=== PATIENT | female | born 1965 | race Caucasian/White ===

== ENCOUNTER → 2016-08-26 | Outpatient (CLI) | payer OTHER ==
--- NOTE | 2016-08-26 20:25 | PN ---
DATE OF SERVICE: 08/26/2016 A 50-year-old lady who has been followed in the sleep center for treatment of obstructive sleep apnea/hypopnea syndrome in severe range. She has history of obstructive sleep apnea with apnea-hypopnea index 51.2. She continued to use her CPAP equipment every night for the whole night. She brought her CPAP unit with her to check up. I checked her CPAP machine. CPAP pressure is 10 cm of water. Patient is using it every night. No snoring with the machine. No sleepiness during the day. [place] Sleepiness Scale is 3. Unfortunately, machine does not have information about the patient's breathing during sleep; but again, clinically it sounds that everything works and she is sleeping well. MEDICATIONS: 1. Levothyroxine. 2. Spironolactone. 3. Vitamin D. PHYSICAL EXAMINATION: GENERAL: The patient in no distress. VITAL SIGNS: BP 120/75, HR 76, RR 16. Height 5 feet 3 inches. Weight 187. BMI 33.1. Temp 98.5, oxygen saturation at room air 98%. HEENT: PERRLA, EOMI. Evaluation of oropharynx showed tongue protrudes midline, extremely low position of soft palate. Neck: Supple. No JVD. Thyroid is not palpable. LUNGS: Clear to percussion and to auscultation. Good air exchange. No wheezing or rhonchi. HEART: S1, S2 regular. No murmurs, gallops, or rubs. ABDOMEN: Slightly obese, soft and nontender. Bowel sounds are present. No organomegaly appreciated. EXTREMITIES: No clubbing or cyanosis. SUMMER CAMP COUNSELOR: Awake, alert, and oriented x3. Cranial nerves 2 to 7 intact. There is no fasciculation or atrophy noted. No focal deficits observed. IMPRESSION: 1. Obstructive sleep apnea/hypopnea syndrome, clinically on control with continuous positive airway pressure at 10 cm of water. Patient benefiting from treatment. 2. Hypothyroidism. 3. Obesity. 4. History of polycystic ovary syndrome. 5. Status post uvulopalatopharyngoplasty. 6. Nasal septum deviation. PLAN: 1. Continue treatment with CPAP every night for the whole night. 2. Watching and losing weight. 3. Sleep hygiene with regular time in bed for at least 8 hours. 4. Patient is eligible to receive new CPAP unit if she has any problems with the existing unit. Thank you very much for allowing me to participate in the management of your patient. Sincerely, Dio Rueda MD, PhD, FAASM. Diplomat of [place] [employer], Sleep Medicine Board by [place] [place] [employer] Sales And Events Coordinator of [facility] [place]
== END | disposition home or self-care (01) ==
LOC: SLEEP 16:50
PROVIDERS: ATTEND Internal Medicine
DX: G47.33 Obstructive sleep apnea (adult) (pediatric) (principal); E03.9 Hypothyroidism, unspecified; E66.9 Obesity, unspecified; Z68.33 Body mass index [BMI] 33.0-33.9, adult; J34.2 Deviated nasal septum; Z79.899 Other long term (current) drug therapy

== ENCOUNTER → 2016-10-21 | Outpatient (CLI) | payer OTHER ==
--- NOTE | 2016-10-21 12:17 | PN ---
DATE OF SERVICE: 10/21/2016 A 51-year-old lady who has been followed in the Sleep Center for treatment of obstructive sleep apnea-hypopnea syndrome. Recently, patient received her new CPAP unit and came for followup visit. She is using equipment without any problem related to the machine or mask. I checked her CPAP unit. CPAP pressure is 10 cm of water. Ramp is automatic regimen. Usage is 30 out of 30 nights for more than 4 hours. Average usage is 7.6 hours. Leak is 12 L/min which is acceptable. Apnea-hypopnea index reading is 0.3 for the last month which is perfect. Patient feels well, no symptoms of excessive daytime sleepiness. [place] Sleepiness scale is 1. MEDICATIONS: Levothyroxine, spironolactone, vitamin D. During physical exam, patient in no distress. BP 110/71, HR 74, RR 16, weight 188, temp 98.3, oxygen saturation on room air 98 %. Extremely low position of soft palate. ABDOMEN: Slightly obese. NECK: Supple. No JVD. Thyroid is not palpable. HEART: S2, S2, regular. No murmurs, gallops or rubs. EXTREMITIES: No clubbing or cyanosis. JOY LOADING MACHINE OPERATOR: Awake, alert, and oriented x3. Cranial nerves 2 to 7 intact. There is no fasciculation or atrophy noted. No focal deficits observed. IMPRESSION: 1. Obstructive sleep apnea-hypopnea syndrome on control with CPAP at 10 cm of water. Patient demonstrates 100% compliance with treatment, benefiting from treatment. 2. History of polycystic ( ) syndrome. 3. Hypothyroidism. 4. Mild obesity. 5. Status post UPPP. 6. Nasal septum deviation. PLAN: 1. Patient will continue to use her CPAP equipment every night for the whole night. 2. Losing weight. 3. Sleep hygiene with regular time in bed for at least 8 hours. 4. No driving if feeling any sleepiness. 5. Losing weight. 6. Followup visit in 1 year or earlier if patient has any problem with usage of CPAP treatment. Thank you very much for allowing me to participate in the management of your patient. Sincerely, Dio Rueda MD PhD, FAASM Diplomate of [place] [employer], Sleep Medicine Board by [place] [employer] [place] [employer] Supply Chain Analyst of [facility] [place] [facility] CENTERAlessandro
== END | disposition home or self-care (01) ==
LOC: SLEEP 10:56
PROVIDERS: ATTEND Internal Medicine
DX: G47.33 Obstructive sleep apnea (adult) (pediatric) (principal); E03.9 Hypothyroidism, unspecified; E66.9 Obesity, unspecified; J34.2 Deviated nasal septum; Z90.89 Acquired absence of other organs

== ENCOUNTER 2017-10-10 07:18 | Day surgery (SDC) | payer OTHER ==
[2017-10-06 17:03] VITALS: BMI 33.6
[~2017-10-10 07:18] MED LIST: LACTATED RINGERS 1,000 ML IV SCH
[2017-10-10 07:38] VITALS: RESP 16; TEMP 98
[2017-10-10] MEDS ORDERED: LIDOCAINE 1% 20 ML VIAL (10MG/ML) FOR IV START INTRADERMA ONE (07:41)
[2017-10-10] MEDS ORDERED: PROPOFOL 10 MG/ML 20 ML VIAL IV ONE (08:53)
[2017-10-10] MEDS ORDERED: LIDOCAINE 1% INJ 10MG/ML (20 ML MDV) ONE (08:53)
--- NOTE | 2017-10-10 09:24 | P.PCN ---
Date of Procedure: 10/10/17 Procedure(s) Performed: Procedure: Total colonoscopy. Preoperative diagnosis: Screening for neoplasia. Postoperative diagnosis: Exam within normal limits. Preparation: HalfLytely prep. Sedation: Was provided by anesthesia. Brief clinical history: The patient is a 52-year-old female who is scheduled for this evaluation for screening for neoplasia age being her risk factor. She had a prior exam many years back. The patient has no abdominal complaints, bleeding or anemia. Procedure: With the patient on her left lateral decubitus position and after informed consent and adequate sedation, the perianal area was inspected and it did not show any fissures or fistulas. There were no masses felt on digital rectal examination. The Olympus CFQ 160L video colonoscope was then inserted in the rectum in the usual fashion and advanced to the cecum. The mucosa appeared healthy. There was no polyps or tumors seen or any obvious diverticular disease or other pathology. I retroflexed the endoscope in the rectum before the endoscope was withdrawn. The patient tolerated the procedure well. Plan: The patient was reassured. She will follow-up with you as planned and I recommended repeat exam in 10 years.
[2017-10-10 10:02] VITALS: BP 116/75; PULSE 71
== END 2017-10-10 10:15 | disposition home or self-care (01) ==
LOC: ORWHC2ENDO 07:18
DX: Z12.11 Encounter for screening for malignant neoplasm of colon (principal); K21.9 Gastro-esophageal reflux disease without esophagitis; G47.33 Obstructive sleep apnea (adult) (pediatric); E07.9 Disorder of thyroid, unspecified; Z79.890 Hormone replacement therapy; Z79.899 Other long term (current) drug therapy; Z99.89 Dependence on other enabling machines and devices
CPT/HCPCS: 81025; G0121; J2001; J2704

== ENCOUNTER → 2018-04-14 | Outpatient (CLI) | payer OTHER ==
--- NOTE | 2018-04-14 10:37 | MM ---
Reason for exam: screening (asymptomatic). Last mammogram was performed 2 years and 1 month ago. History: Patient is nulliparous. Family history of breast cancer in maternal aunt. Taking hormonal contraceptives for 10 years beginning at age 20. Took estrogen for 2 months. Physical Findings: A clinical breast exam by your physician is recommended on an annual basis and results should be correlated with mammographic findings. MG Screening Mammo w CAD Bilateral CC and MLO view(s) were taken. XCCM view(s) were taken of the right breast. Prior study comparison: March 03, 2016, bilateral MG screening mammo w CAD. November 05, 2013, bilateral MG screening mammo w CAD. The breast tissue is heterogeneously dense. This may lower the sensitivity of mammography. Nodular density upper outer quadrant right breast. This finding is changed when compared with previous exams. ASSESSMENT: Incomplete: need additional imaging evaluation, BI-RAD 0 RECOMMENDATION: Special view mammogram and ultrasound of the right breast. [facility] will attempt to contact patient to return for supplemental views and ultrasound.
== END ==
LOC: RADMAMWWP 06:58
PROVIDERS: ATTEND Family Medicine
DX: Z12.31 Encounter for screening mammogram for malignant neoplasm of breast (principal)
CPT/HCPCS: 77067

== ENCOUNTER → 2018-05-02 | Outpatient (CLI) | payer OTHER ==
--- NOTE | 2018-05-02 17:20 | MM ---
Reason for exam: additional evaluation requested from abnormal screening. Last mammogram was performed 1 month ago. History: Patient is nulliparous. Family history of breast cancer in maternal aunt. Taking hormonal contraceptives for 10 years beginning at age 20. Took estrogen for 2 months. Physical Findings: Nurse did not find any significant physical abnormalities on exam. MG 3D Work Up W/Cad RT Spot compression CC, spot compression MLO, spot compression XCCL, and ML view(s) were taken of the right breast. Prior study comparison: April 14, 2018, bilateral MG screening mammo w CAD. March 03, 2016, bilateral MG screening mammo w CAD. The breast tissue is heterogeneously dense. This may lower the sensitivity of mammography. No discrete abnormality persists on additional views. These results were verbally communicated with the patient and result sheet given to the patient on 05/02/18. ASSESSMENT: Negative, BI-RAD 1 RECOMMENDATION: Return to routine screening mammogram schedule for both breasts.
== END | disposition home or self-care (01) ==
LOC: RADMAMWWP 14:11
PROVIDERS: ATTEND Family Medicine
DX: R92.8 Other abnormal and inconclusive findings on diagnostic imaging of breast (principal)
CPT/HCPCS: 77061; 77065

== ENCOUNTER → 2019-05-12 | Outpatient (CLI) | payer BC ==
--- NOTE | 2019-05-14 14:32 | MM ---
Reason for exam: screening (asymptomatic). Last mammogram was performed 1 year ago. History: Patient is nulliparous. Family history of breast cancer in maternal aunt. Took hormonal contraceptives for 10 years beginning at age 20. Took estrogen for 2 months. Physical Findings: A clinical breast exam by your physician is recommended on an annual basis and results should be correlated with mammographic findings. MG 3D Screening Mammo W/Cad Bilateral CC and MLO view(s) were taken. Prior study comparison: May 02, 2018, right breast MG 3d work up w/cad RT. April 14, 2018, bilateral MG screening mammo w CAD. The breast tissue is heterogeneously dense. This may lower the sensitivity of mammography. There is no discrete abnormality. No significant changes when compared with prior studies. ASSESSMENT: Negative, BI-RAD 1 RECOMMENDATION: Routine screening mammogram of both breasts in 1 year.
== END | disposition home or self-care (01) ==
LOC: RADMAMWWP 11:08
PROVIDERS: ATTEND Family Medicine
DX: Z12.31 Encounter for screening mammogram for malignant neoplasm of breast (principal)
CPT/HCPCS: 77063; 77067

== ENCOUNTER → 2020-07-11 | Outpatient (CLI) | payer BC ==
--- NOTE | 2020-07-14 10:41 | MM ---
Reason for exam: screening (asymptomatic). Last mammogram was performed 1 year and 2 months ago. History: Patient is nulliparous. Family history of breast cancer in maternal aunt. Took hormonal contraceptives for 10 years beginning at age 20. Took estrogen for 2 months. Physical Findings: A clinical breast exam by your physician is recommended on an annual basis and results should be correlated with mammographic findings. MG 3D Screening Mammo W/Cad Bilateral CC and MLO view(s) were taken. Prior study comparison: May 12, 2019, bilateral MG 3d screening mammo w/cad. May 02, 2018, right breast MG 3d work up w/cad RT. The breast tissue is heterogeneously dense. This may lower the sensitivity of mammography. There is no discrete abnormality. No significant changes when compared with prior studies. ASSESSMENT: Negative, BI-RAD 1 RECOMMENDATION: Routine screening mammogram of both breasts in 1 year.
== END | disposition home or self-care (01) ==
LOC: RADMAMWWP 09:23
PROVIDERS: ATTEND Family Medicine
DX: Z12.31 Encounter for screening mammogram for malignant neoplasm of breast (principal)
CPT/HCPCS: 77063; 77067

== ENCOUNTER → 2021-09-22 | Outpatient (CLI) | payer BC ==
[2021-09-22 15:41] VITALS: BP 130/82; PULSE 87; RESP 16; TEMP 98; BMI 35.2
--- NOTE | 2021-09-22 15:58 | P.BASOAP ---
Subjective Progress Note Date: 09/22/21 Principal diagnosis: Morbid obesity 56-year-old female here today for LAP-BAND evaluation. Patient had her lap band placed approximately 12 years ago. Last seen in the office about 9 years ago. She is not sure how much fluid is in her band. Patient states she has daily GERD symptoms. Occasional episodes of vomiting. Takes omeprazole daily. She has had some chills with nausea and some lightheadedness intermittently over the last year or so. She had a mildly elevated white blood cell count at one point that resolved. Yesterday she swallowed a crown that was temporary and is concerned that could have been stuck somewhere. She says she was able to eat solid food for lunch and dinner however after that. No vomiting since then. Objective - Vital Signs Vital signs: Vital Signs Temp 98 F 09/22/21 15:35 Pulse 87 09/22/21 15:35 Resp 16 09/22/21 15:35 BP 130/82 09/22/21 15:35 Pulse Ox FiO2 Intake & Output 09/21/21 09/22/21 09/22/21 18:59 06:59 18:59 Weight 88.904 kg - Exam Abdomen: Soft, nontender, nondistended Assessment/Plan (1) Morbid obesity Narrative/Plan: 56-year-old female with GERD symptoms and history of lap band. Will empty the band at this time. Will order esophagram. After I reviewed that study will tentatively plan EGD. The patient's lap band port was palpated. The site was aseptically prepped. The Varner needle was advanced into the port. A total of 5.5 ml of fluid was found within the band. A total of 4 mL was removed leaving a total of 1.5 mL. Pressure was held and a sterile dressing was applied. Plan: Date: 09/22/21 Initial Weight: 88.904 kg Initial BMI: 35.2 Current Weight: 88.904 kg Current BMI: 35.2 Type of Surgery: Adjustable Gastric Banding Total Volume in Band: Previous Volume: Volume Removed: Volume Added: Band Size:
== END | disposition home or self-care (01) ==
LOC: BARWHC3 15:23
PROVIDERS: ATTEND Surgery
DX: E66.01 Morbid (severe) obesity due to excess calories (principal); Z68.35 Body mass index [BMI] 35.0-35.9, adult
CPT/HCPCS: 99212

== ENCOUNTER → 2021-10-19 | Outpatient (CLI) | payer BC ==
--- NOTE | 2021-10-19 10:24 | FL ---
EXAMINATION TYPE: FL barium swallow DATE OF EXAM: 10/19/2021 LAP BANDING LIMITED ESOPHAGRAM: CLINICAL HISTORY: History of lap band placed 2009 with epigastric pain and reflux-like symptoms had entire fill removed 2 weeks earlier with improvement in symptoms TECHNIQUE: Limited esophagram is performed utilizing 2-3 oz of barium. 32 seconds of fluoro time an d 41 images obtained. COMPARISON: Prior chest x-ray August 31, 2021 and older study 2015. FINDINGS: Pre-procedure production support engineer image shows lap band in stable and satisfactory position in proximal stomach just below the gastroesophageal junction. The PHI angle is stable and satisfactory. The patient then drank oral contrast. There is good flow of contrast along the course of the proximal to mid esophagus. Distal esophagus has tortuosity and mild delay with some abnormal secondary and t ertiary contractions. There is good flow of contrast along the course of the lap band, there is no ev idence of contrast extravasation to suggest leak. There is no evidence of lap band slippage. IMPRESSION: No evidence of lap band slippage or significant obstruction.
== END | disposition home or self-care (01) ==
LOC: RADUSWWP 09:02
PROVIDERS: ATTEND Surgery
DX: K21.9 Gastro-esophageal reflux disease without esophagitis (principal); R13.10 Dysphagia, unspecified
CPT/HCPCS: 74220

== ENCOUNTER → 2021-11-17 | Outpatient (CLI) | payer BC ==
--- NOTE | 2021-11-18 14:13 | MM ---
Reason for Exam: Screening (asymptomatic). Last mammogram was performed 1 year(s) and 4 month(s) ago. Patient History: Menarche at age 13. Patient has no children. Estrogen for 2 months. Hormonal Contraceptives for 10 years from age 20 until age 40. Maternal aunt had breast cancer. Risk Values: Sharda 5 year model risk: 1.3%. NCI Lifetime model risk: 9.1%. Prior Study Comparison: 05/02/2018 Right Diagnostic Mammogram, [facility]. 05/12/2019 Bilateral Screening Mammogram, [facility]. 07/11/2020 Bilateral Screening Mammogram, [facility]. Tissue Density: The breast tissue is heterogeneously dense. This may lower the sensitivity of mammography. Findings: Analyzed By CAD. No suspicious groups of microcalcifications, spiculated or lobular masses, architectural distortion or other secondary signs of malignancy are mammographically apparent. Overall Assessment: Benign, BI-RAD 2 Management: Screening Mammogram of both breasts in 1 year. A negative mammogram report should not preclude additional follow up of suspicious palpable abnormalities. Patient should continue monthly self breast exam. A clinical breast exam by your physician is recommended on an annual basis and results should be correlated with mammographic findings. Electronically signed and approved by: Billy Milligan D.O. Radiologis
== END | disposition home or self-care (01) ==
LOC: RADMAMWWP 07:09
PROVIDERS: ATTEND Family Medicine
DX: Z12.31 Encounter for screening mammogram for malignant neoplasm of breast (principal)
CPT/HCPCS: 77063; 77067

== ENCOUNTER → 2022-07-20 | Outpatient (CLI) | payer BC ==
[2022-07-20 13:08] VITALS: BP 156/81; PULSE 48; RESP 16; TEMP 98; BMI 39.7
--- NOTE | 2022-07-20 16:24 | P.BASOAP ---
Subjective Progress Note Date: 07/20/22 Principal diagnosis: Morbid obesity Patient returns after being seen last summer. Her band was loosened from 5.5- 1.5 mL. She had an upper GI after that showing no evidence of obstruction or prolapse. Patient says she takes Carafate occasionally for possible ulcer disease. Never had an EGD. Says her dysphasia resolved after loosing her band. She feels her band is too loose. She has gained weight. She does admit to dysphagia to bread rarely. Objective - Vital Signs Vital signs: Vital Signs Temp 98 F 07/20/22 13:06 Pulse 48 L 07/20/22 13:06 Resp 16 07/20/22 13:06 BP 156/81 07/20/22 13:06 Pulse Ox FiO2 Intake & Output 07/19/22 07/20/22 07/20/22 18:59 06:59 18:59 Weight 100.244 kg - Exam Abdomen: Soft, nontender, nondistended Assessment/Plan (1) Morbid obesity Narrative/Plan: Patient would like to proceed with LAP-BAND adjustment. We've agreed at 2 mL at this time. The patient's lap band port was palpated. The site was aseptically prepped. The Varner needle was advanced into the port. A total of 2 ml of fluid was added for a total of 3.5 mL. Pressure was held and a sterile dressing was applied. Plan: Date: 07/20/22 Initial Weight: 88.904 kg Initial BMI: 35.2 Current Weight: 100.244 kg Current BMI: 39.7 Type of Surgery: Adjustable Gastric Banding Total Volume in Band: Previous Volume: Volume Removed: Volume Added: Band Size:
== END ==
LOC: BARWHC3 12:40
PROVIDERS: ATTEND Surgery
DX: E66.01 Morbid (severe) obesity due to excess calories (principal); Z46.51 Encounter for fitting and adjustment of gastric lap band; Z68.39 Body mass index [BMI] 39.0-39.9, adult
CPT/HCPCS: 99212

== ENCOUNTER → 2022-09-21 | Outpatient (CLI) | payer BC ==
[2022-09-21 13:03] VITALS: BP 170/70; PULSE 70; RESP 16; TEMP 98.1; BMI 39.2
--- NOTE | 2022-09-21 13:42 | P.BASOAP ---
Subjective Progress Note Date: 09/21/22 Principal diagnosis: morbid obesity patient returns for recheck. She was last seen in July. Patient has had a few episodes of mild heartburn and burning stomach pain she says. She is taking Carafate on a few occasions. Has decent restriction. She has lost 3 pounds. Patient was wondering whether she needed to have an EGD. No symptoms currently. No dysphagia. Objective - Vital Signs Vital signs: Vital Signs Temp 98.1 F 09/21/22 13:01 Pulse 70 09/21/22 13:01 Resp 16 09/21/22 13:01 BP 170/70 09/21/22 13:01 Pulse Ox FiO2 Intake & Output 09/20/22 09/21/22 09/21/22 18:59 06:59 18:59 Weight 98.883 kg - Exam Abdomen: Soft, nontender, nondistended Assessment/Plan (1) Morbid obesity Narrative/Plan: patient doing well at this time. She is not interested in lap band adjustment. Keep band at 3.5 mL for now. If patient has further GI complaints consider EGD. Plan: Date: 09/21/22 Initial Weight: 88.904 kg Initial BMI: 35.2 Current Weight: 98.883 kg Current BMI: 39.2 Type of Surgery: Adjustable Gastric Banding Total Volume in Band: 3.5 Previous Volume: Volume Removed: Volume Added: Band Size:
== END ==
LOC: BARWHC3 12:49
PROVIDERS: ATTEND Surgery
DX: E66.01 Morbid (severe) obesity due to excess calories (principal); Z68.39 Body mass index [BMI] 39.0-39.9, adult; Z98.84 Bariatric surgery status
CPT/HCPCS: 99211

== ENCOUNTER → 2023-07-19 | Outpatient (CLI) | payer BC ==
--- NOTE | 2023-07-20 15:15 | MM ---
Reason for Exam: Screening (asymptomatic). Last mammogram was performed 1 year(s) and 8 month(s) ago. Patient History: Menarche at age 13. Patient has no children. Postmenopausal. Estrogen for 2 months. Hormonal Contraceptives for 10 years from age 20 until age 40. Maternal aunt (great) had breast cancer. Risk Values: Sharda 5 year model risk: 1.4%. NCI Lifetime model risk: 8.9%. Prior Study Comparison: 04/14/2018 Bilateral Screening Mammogram, [facility]. 05/02/2018 Right Diagnostic Mammogram, [facility]. 05/12/2019 Bilateral Screening Mammogram, [facility]. 07/11/2020 Bilateral Screening Mammogram, [facility]. 11/17/2021 Bilateral MG 3D screening mammo w/cad, [facility]. Tissue Density: The breasts are heterogeneously dense, which may obscure small masses. Findings: Analyzed By CAD. There is no suspicious group of microcalcifications or new suspicious mass in either breast. Overall Assessment: Benign, BI-RAD 2 Management: Screening Mammogram of both breasts in 1 year. . Patient should continue monthly self-breast exams. A clinical breast exam by your physician is recommended on an annual basis. This exam should not preclude additional follow-up of suspicious palpable abnormalities. Note on Sharda scores and lifetime risk: 1. A Sharda score greater than 3% is considered moderate risk. If this is the case, consider specialist referral to assess eligibility for a risk reducing agent. 2. If overall lifetime risk for the development of breast cancer is 20% or higher, the patient may qualify for future screening with alternating mammogram and breast MRI. Electronically signed and approved by: Shaun Nguyen M.D. Radiologis
== END | disposition home or self-care (01) ==
LOC: RADMAMWWP 07:36
PROVIDERS: ATTEND Family Medicine
DX: Z12.31 Encounter for screening mammogram for malignant neoplasm of breast (principal); Z78.0 Asymptomatic menopausal state; Z80.3 Family history of malignant neoplasm of breast
CPT/HCPCS: 77063; 77067